=== PATIENT | male | born 1990 | race Caucasian/White ===

== ENCOUNTER 2018-12-06 09:24 | Outpatient (REF) | payer BC, SELFPAY ==
[2018-12-06 21:30] LABS: ALT 100 U/L (12-78); AST 31 U/L (15-37); Albumin 3.9 g/dL (3.4-5.0); Alkaline Phosphatase 64 U/L (46-116); BUN 11 mg/dL (7-18); Bilirubin, Total 0.6 mg/dL (0.2-1.0); CREATININE 0.97 mg/dL (0.70-1.30); Calcium 8.6 mg/dL (8.5-10.1); Chloride 104 mmol/L (98-107); Cholesterol 152 mg/dL (50-200); Glucose 92 mg/dL (70-100); HDL Cholesterol 32 mg/dL (40-60); LDL CHOLESTEROL 104 mg/dL (<100); Potassium 3.8 mmol/L (3.5-5.1); Sodium 142 mmol/L (136-145); Total Protein 7.4 g/dL (6.4-8.2); Triglyceride 92 mg/dL (30-150)
== END 2018-12-06 09:44 ==
LOC: NCHCN 09:24
PROVIDERS: PCP Family Medicine; Visit Provider Family Medicine
DX: Z00.00 Encounter for general adult medical examination without abnormal findings (principal); K75.81 Nonalcoholic steatohepatitis (NASH)
CPT/HCPCS: 80053; 80061; 83721

== ENCOUNTER 2020-09-14 21:18 | Outpatient (REF) | payer BC, SELFPAY ==
[2020-09-14 22:28] LABS: ALT 135 U/L (16-63); AST 41 U/L (15-37); Albumin 4.8 g/dL (3.4-5.0); Alkaline Phosphatase 72 U/L (46-116); Anion Gap 10.2 mmol/L (3-11); BUN 10 mg/dL (7-18); Bilirubin, Total 0.8 mg/dL (0.2-1.0); CO2 29.8 mmol/L (21.0-32.0); CREATININE 0.92 mg/dL (0.70-1.30); Calcium 9.2 mg/dL (8.5-10.1); Calculated LDL 116 mg/dL (<100); Chloride 102 mmol/L (98-107); Cholesterol 180 mg/dL (<200); Glucose 72 mg/dL (74-106); HDL Cholesterol 33 mg/dL (40-60); Potassium 3.7 mmol/L (3.5-5.1); Sodium 142 mmol/L (136-145); Total Protein 8.7 g/dL (6.4-8.2); Triglyceride 158 mg/dL (<150)
== END 2020-09-14 21:38 ==
LOC: NCHCN 21:18
PROVIDERS: PCP Family Medicine; Visit Provider Family Medicine
DX: R94.5 Abnormal results of liver function studies (principal); Z00.00 Encounter for general adult medical examination without abnormal findings; E66.9 Obesity, unspecified; K75.81 Nonalcoholic steatohepatitis (NASH)
CPT/HCPCS: 80053; 80061

== ENCOUNTER 2021-12-07 19:16 | Outpatient (REF) | payer BC, SELFPAY ==
[2021-12-07 21:53] LABS: Prothrombin Time 9.9 sec (9.3-11.0)
[2021-12-07 22:04] LABS: ALT 181 U/L (16-63); AST 56 U/L (15-37); Albumin 4.2 g/dL (3.4-5.0); Alkaline Phosphatase 67 U/L (46-116); Bilirubin, Direct 0.1 mg/dL (0.0-0.2); Bilirubin, Total 0.5 mg/dL (0.2-1.0); Total Protein 7.6 g/dL (6.4-8.2)
== END 2021-12-07 19:17 | disposition home or self-care (01) ==
LOC: NCHCN 19:16
PROVIDERS: PCP Family Medicine; Visit Provider Internal Medicine
DX: R94.5 Abnormal results of liver function studies (principal); M65.88 Other synovitis and tenosynovitis, other site
CPT/HCPCS: 80076; 85610

== ENCOUNTER 2022-08-15 13:41 | Outpatient (REF) | payer BC, SELFPAY ==
[2022-08-15 20:56] LABS: Abs Immature Grans 0.01 10^3/uL (0.0-0.06); Absolute Basophil Count 0.03 10^3/uL (0.0-0.2); Absolute Lymphocyte Count 1.39 10^3/uL (1.2-3.4); Absolute Monocyte Count 0.39 10^3/uL (0.1-0.8); Absolute Neutrophil Count 2.26 10^3/uL (1.2-6.7); Basophils % 0.7; Eosinophils % 2.4; HCT 43.3 % (40.0-50.0); HGB 14.6 g/dL (13.5-17.5); Immature Grans % 0.2; Lymphocytes % 33.3; MCHC 33.7 % (32.0-36.0); MCV 86 fL (80-95); MPV 10.6 fL (8.0-11.0); Monocytes % 9.3; Neutrophils % 54.1; Platelet Count 180 10^3/uL (130-400); RBC 5.03 10^6/uL (4.36-5.78); RDW 13.4 % (11.8-14.1); RDW-SD 41.4 fL; WBC 4.18 10^3/uL (4.4-10.8)
[2022-08-15 20:59] LABS: ESR 11 mm/hr (0-15)
[2022-08-15 21:07] LABS: Prothrombin Time 9.6 sec (9.3-11.0)
[2022-08-15 21:17] LABS: ALT 120 U/L (16-63); AST 53 U/L (15-37); Albumin 3.9 g/dL (3.4-5.0); Alkaline Phosphatase 69 U/L (46-116); Anion Gap 2.3 mmol/L (3-11); BUN 11 mg/dL (7-18); Bilirubin, Total 0.5 mg/dL (0.2-1.0); C-Reactive Protein 0.92 mg/dL (0.0-0.3); CO2 28.7 mmol/L (21.0-32.0); CREATININE 0.9 mg/dL (0.70-1.30); Calcium 8.5 mg/dL (8.5-10.1); Chloride 106 mmol/L (98-107); Creatine Kinase 429 U/L (39-308); Estimated GFR 117.83 (mL/min/1.73m2); Glucose 86 mg/dL (74-106); LDH 271 U/L (85-227); Potassium 3.9 mmol/L (3.5-5.1); Sodium 137 mmol/L (136-145); TSH 1.38 uIU/mL (0.36-3.74); Total Protein 7.8 g/dL (6.4-8.2)
[2022-08-17 10:49] LABS: Lyme Ab w Rflx to Lyme Confirm Positive (Negative)
[2022-08-17 12:29] LABS: Lyme IgG Ab Negative (Negative); Lyme IgM Ab Positive (Negative)
[2022-08-18 20:21] LABS: Anaplasma phagocytophilum Negative (Negative); B. miyamotoi PCR Negative (Negative); Babesia divergens/MO-1 Negative (Negative); Babesia duncani Negative (Negative); Babesia microti Negative (Negative); Ehrlichia chaffeensis Negative (Negative); Ehrlichia ewingii/canis Negative (Negative); Ehrlichia muris eauclairensis Negative (Negative)
== END 2022-08-15 13:42 | disposition home or self-care (01) ==
LOC: NCHCN 13:41
PROVIDERS: PCP Family Medicine; Visit Provider Nurse Practitioner Family
DX: M60.9 Myositis, unspecified (principal)
CPT/HCPCS: 80053; 82550; 85652; 86617; 87798; 83615; 84443; 85025; 85610; 86140; 86618

== ENCOUNTER 2023-02-17 12:26 | Outpatient (REF) | payer BC, SELFPAY ==
[2023-02-17 14:13] LABS: ALT 94 U/L (16-63); AST 32 U/L (15-37); Alkaline Phosphatase 82 U/L (46-116); Anion Gap 8.1 mmol/L (3-11); BUN 12 mg/dL (7-18); Bilirubin, Total 0.9 mg/dL (0.2-1.0); CO2 28.9 mmol/L (21.0-32.0); CREATININE 0.9 mg/dL (0.70-1.30); Calculated LDL 96 mg/dL (<100); Chloride 105 mmol/L (98-107); Cholesterol 150 mg/dL (<200); Glucose 90 mg/dL (74-106); HDL Cholesterol 31 mg/dL (40-60); Potassium 3.7 mmol/L (3.5-5.1); Sodium 142 mmol/L (136-145); Total Protein 8.1 g/dL (6.4-8.2); Triglyceride 117 mg/dL (<150)
== END 2023-02-17 12:27 | disposition home or self-care (01) ==
LOC: NCHCN 12:26
PROVIDERS: PCP Family Medicine; Visit Provider Family Medicine
DX: Z00.00 Encounter for general adult medical examination without abnormal findings (principal); R94.5 Abnormal results of liver function studies; E66.8 Other obesity; J02.9 Acute pharyngitis, unspecified; Z13.220 Encounter for screening for lipoid disorders
CPT/HCPCS: 80053; 80061; 87070

== ENCOUNTER 2023-09-01 17:21 | Outpatient (REF) | payer BC, SELFPAY ==
[2023-09-01 14:51] LABS: HCT 45.4 % (40.0-50.0); HGB 15.9 g/dL (13.5-17.5); MCH 28.8 pg (27.0-33.0); MCV 82 fL (80-95); MPV 10.5 fL (8.0-11.0); Platelet Count 184 10^3/uL (130-400); RBC 5.53 10^6/uL (4.36-5.78); RDW 13.1 % (11.8-14.1); RDW-SD 38.4 fL; WBC 5.83 10^3/uL (4.4-10.8)
[2023-09-01 15:01] LABS: Prothrombin Time 9.8 sec (9.1-11.1)
[2023-09-01 15:55] LABS: ALT 122 U/L (16-63); AST 43 U/L (15-37); Albumin 4.1 g/dL (3.4-5.0); Alkaline Phosphatase 70 U/L (46-116); Anion Gap 7.1 mmol/L (3-11); BUN 14 mg/dL (7-18); Bilirubin, Total 0.8 mg/dL (0.2-1.0); CO2 27.9 mmol/L (21.0-32.0); Calcium 9.5 mg/dL (8.5-10.1); Chloride 104 mmol/L (98-107); Estimated GFR 103.19 (mL/min/1.73m2); Glucose 100 mg/dL (74-106); Potassium 3.9 mmol/L (3.5-5.1); Sodium 139 mmol/L (136-145); Total Protein 8.3 g/dL (6.4-8.2)
[2023-09-04 09:00] LABS: HBs Antibody, Quant 3.4 mIU/mL (See Note); Hepatitis B Surface Ab Negative (See Note)
== END 2023-09-01 17:22 | disposition home or self-care (01) ==
LOC: NCHCN 17:21
PROVIDERS: PCP Family Medicine; Visit Provider Family Medicine
DX: Z00.00 Encounter for general adult medical examination without abnormal findings (principal); K75.81 Nonalcoholic steatohepatitis (NASH); R94.5 Abnormal results of liver function studies; E66.9 Obesity, unspecified
CPT/HCPCS: 80053; 85027; 86706; 85610

== ENCOUNTER 2025-02-25 16:27 | Outpatient (REF) | payer BC, SELFPAY ==
[2025-02-25 21:48] LABS: HCT 44.5 % (40.0-50.0); HGB 15.8 g/dL (13.5-17.5); MCH 29.9 pg (27.0-33.0); MCHC 35.5 % (32.0-36.0); MCV 84 fL (80-95); Platelet Count 211 10^3/uL (130-400); RBC 5.28 10^6/uL (4.36-5.78); RDW 13.2 % (11.8-14.1); RDW-SD 40.5 fL; WBC 7.58 10^3/uL (4.4-10.8)
[2025-02-25 21:55] LABS: INR 0.9 (0.9-1.1); Prothrombin Time 9.4 sec (9.1-11.1)
[2025-02-25 22:09] LABS: ALT 90 U/L (16-63); AST 35 U/L (15-37); Albumin 4.1 g/dL (3.4-5.0); Alkaline Phosphatase 79 U/L (46-116); Anion Gap 6.4 mmol/L (3-11); BUN 13 mg/dL (7-18); Bilirubin, Total 0.5 mg/dL (0.2-1.0); CO2 30.6 mmol/L (21.0-32.0); CREATININE 0.8 mg/dL (0.70-1.30); Calcium 9.2 mg/dL (8.5-10.1); Calculated LDL 79 mg/dL (<100); Chloride 104 mmol/L (98-107); Cholesterol 163 mg/dL (<200); Estimated GFR 119.84 (mL/min/1.73m2); Glucose 105 mg/dL (74-106); HDL Cholesterol 32 mg/dL (>or=40); Potassium 3.7 mmol/L (3.5-5.1); Sodium 141 mmol/L (136-145); TSH 1.09 uIU/mL (0.36-3.74); Total Protein 7.9 g/dL (6.4-8.2); Triglyceride 261 mg/dL (<150)
[2025-02-25 22:17] LABS: Hemoglobin A1C < 4.5 % (<5.7)
== END 2025-02-25 16:28 | disposition home or self-care (01) ==
LOC: NCHCN 16:27
PROVIDERS: PCP Family Medicine; Visit Provider Nurse Practitioner Family
DX: Z00.00 Encounter for general adult medical examination without abnormal findings (principal); K75.81 Nonalcoholic steatohepatitis (NASH)
CPT/HCPCS: 80053; 80061; 85027; 83036; 84443; 85610